=== PATIENT | female | born 1970 | race Caucasian/White ===

== ENCOUNTER 2018-10-01 23:49 | Emergency (ER) | payer OTHER, MEDICAID ==
[~2018-10-01] VITALS: Ht 165.1 cm; Wt 87.1 kg
[2018-10-02] VITALS: BP_SYST 124
[2018-10-02] MEDS: KETOROLAC TROMETHAMINE 60 MG/2 ML VIAL IM ONE (01:01)
[2018-10-02 01:30] VITALS: BP_SYST 144
== END 2018-10-02 01:30 | disposition home or self-care (01) ==
LOC: SED 23:49
DX: N93.8 Other specified abnormal uterine and vaginal bleeding (principal); N39.0 Urinary tract infection, site not specified; E11.29 Type 2 diabetes mellitus with other diabetic kidney complication; N28.9 Disorder of kidney and ureter, unspecified; I10 Essential (primary) hypertension; Z99.2 Dependence on renal dialysis; Z90.49 Acquired absence of other specified parts of digestive tract; Z88.6 Allergy status to analgesic agent
CPT/HCPCS: 96372; 99283; J1885